=== PATIENT | female | born 1985 | race African-American/Black ===

== ENCOUNTER 2022-03-01 07:49 | Inpatient (IN) ==
[2022-03-01] MEDS ORDERED: ONDANSETRON 4 MG/2 ML VIAL IV PRN ×2 (08:19→20:42)
[2022-03-01] MEDS ORDERED: OXYTOCIN/LR 20 UNIT/1,000 ML BAG IV ONE ×3 (08:19→20:42)
[2022-03-01] MEDS ORDERED: CARBOPROST TROMETHAMINE 250 MCG/ML AMP IM PRN (08:19)
[2022-03-01] MEDS ORDERED: miSOPROStoL 200 MCG TABLET RECTAL PRN (08:19)
[2022-03-01] MEDS ORDERED: METHYLERGONOVINE 0.2 MG/1 ML AMP IM PRN (08:19)
[2022-03-01] MEDS ORDERED: TRANEXAMIC ACID 1,000 MG in SODIUM CHLORIDE 0.9% 100 ML IV PRN (08:19)
[2022-03-01] MEDS ORDERED: BUTORPHANOL 2 MG/ML VIAL IV PRN (08:19)
[2022-03-01] MEDS ORDERED: MEPERIDINE 25 MG/1 ML VIAL IM PRN (08:19)
[2022-03-01] MEDS ORDERED: diphenhydrAMINE 50 MG/1 ML VIAL IV PRN ×2 (08:24)
[2022-03-01] MEDS ORDERED: FAMOTIDINE 20 MG/2 ML VIAL IV ONE (08:24)
[2022-03-01] MEDS ORDERED: ePHEDrine 50 MG/ML VIAL IV PRN (08:24)
[2022-03-01] MEDS ORDERED: PROMETHAZINE 25 MG/1 ML VIAL IM ONE (08:24)
[2022-03-01] MEDS ORDERED: hydrOXYzine HCL 25 MG/1 ML VIAL IM PRN (08:24)
[2022-03-01] MEDS ORDERED: NALOXONE 0.4 MG/ML VIAL IV PRN (08:24)
[2022-03-01] MEDS ORDERED: CITRIC ACID/SODIUM CITRATE 30 ML UDCUP PO ONE (08:24)
[2022-03-01] MEDS ORDERED: OXYTOCIN/LR 20 UNIT/1,000 ML BAG IV SCH (08:30)
[2022-03-01 08:33] LABS: Bacteria,Urine Occasional /HPF (Few); Bilirubin,Urine Negative (Negative); Blood, Urine Large mg/dL (Negative); Glucose,Urine (UA) Negative (Negative); Ketones,Urine 5 mg/dL (Negative); Mucus,Urine Occasional /LPF (Occasional); Nitrite,Urine Negative (Negative); Protein,Urine Negative (Negative); RBC,Urine 4 /HPF (0-4); Squamous Epithelial Cell,Urine Few /HPF (0-10); Urine Appearance CLOUDY (Clear); Urine Color Yellow (Yellow); Urine Specific Gravity 1.017 (1.001-1.035); Urine Urobilinogen < 2.0 eU/dL (<2.0)
[2022-03-01 08:39] LABS: Basophils # 0.1 10*3/uL (0.0-0.2); Basophils % 0.5 % (0.0-0.8); Eosinophils # 0.3 10*3/uL (0.0-0.87); Eosinophils % 3.1 % (0.00-10.9); Hematocrit 33.4 VOL% (35.7-47.0); Hemoglobin 10.8 GM/DL (12.0-16.0); Immature Granulocytes % 2.5 %; Immature Granulocytes Absolute 0.25 #; Lymphocytes # 2.1 10*3/uL (1.4-4.0); Mean Corpuscular HGB Conc 32.3 GM/DL (32-36); Mean Corpuscular Volume 88.6 FL (87-102); Mean Platelet Volume 10.2 FL (9.6-12.0); Monocytes # 0.9 10*3/uL (0.11-0.8); Monocytes % 9.2 % (1.7-12.7); Neutrophils % 63.7 % (38.7-73.9); Platelet Count 131 T/CUMM (130-400); Red Blood Count 3.77 MC/CUMM (3.8-5.5); Red Cell Distribution Width 14.1 % (9.3-17.3); White Blood Count 9.9 T/CUMM (4-12)
[2022-03-01] MEDS: LACTATED RINGERS 1,000 ML IV SCH ×3 (08:52→12:59)
[2022-03-01] MEDS ORDERED: AMPICILLIN INJ 2,000 MG in SODIUM CHLORIDE 0.9% 100 ML IV ONE (09:45)
[2022-03-01] MEDS: fentaNYL 2 MCG/ROPIV 0.2% EPID 100 ML EPIDURAL SCH ×2 (09:49→16:28)
[2022-03-01 10:25] LABS: Bilirubin,Urine Negative (Negative); Blood, Urine Negative (Negative); Glucose,Urine (UA) Negative (Negative); Ketones,Urine 80 mg/dL (Negative); Mucus,Urine Occasional /LPF (Occasional); Nitrite,Urine Negative (Negative); Protein,Urine Negative (Negative); RBC,Urine 1 /HPF (0-4); Squamous Epithelial Cell,Urine Occasional /HPF (0-10); Urine Appearance CLEAR (Clear); Urine Color Yellow (Yellow); Urine Specific Gravity 1.021 (1.001-1.035); Urine Urobilinogen < 2.0 eU/dL (<2.0)
[2022-03-01] MEDS: AMPICILLIN INJ 1,000 MG in SODIUM CHLORIDE 0.9% 100 ML IV SCH ×2 (13:47→18:17)
[2022-03-01] MEDS ORDERED: TRANEXAMIC ACID 1,000 MG/10 ML VIAL ONE (15:30)
[2022-03-01] MEDS ORDERED: miSOPROStoL 200 MCG TABLET ONE (15:30)
[2022-03-01] MEDS ORDERED: SODIUM CHLORIDE 0.9% 0 ML IV ONE (15:30)
[2022-03-01] MEDS ORDERED: METHYLERGONOVINE 0.2 MG/1 ML AMP ONE (15:31)
[2022-03-01] MEDS ORDERED: CARBOPROST TROMETHAMINE 250 MCG/ML AMP IM ONE (15:31)
[2022-03-01] MEDS ORDERED: ceFAZolin 2,000 MG/50 ML DUPLEX IV ONE (18:53)
[2022-03-01] MEDS ORDERED: LIDOCAINE MPF 2% /EPI 20 ML VIAL ONE (19:06)
[2022-03-01] MEDS ORDERED: ONDANSETRON 4 MG/2 ML VIAL ONE (19:06)
[2022-03-01] MEDS ORDERED: PHENYLEPHRINE 1 MG/10 ML SYRINGE IV ONE ×2 (19:37→19:57)
[2022-03-01] MEDS ORDERED: buprenorphine HCL 0.3 MG/ML VIAL ONE (19:38)
[2022-03-01] MEDS ORDERED: ACETAMINOPHEN INJ 1,000 MG/100 ML VIAL IV ONE (19:38)
[2022-03-01] MEDS ORDERED: KETOROLAC 30 MG/1 ML VIAL ONE (19:38)
[2022-03-01] MEDS ORDERED: DEXAMETHASONE 4 MG/1 ML VIAL ONE (19:44)
[2022-03-01] MEDS ORDERED: ePHEDrine 50 MG/ML VIAL ONE (19:54)
[2022-03-01] MEDS ORDERED: CALCIUM CHLORIDE 1,000 MG/10 ML VIAL IV ONE (20:11)
[2022-03-01] MEDS ORDERED: METOCLOPRAMIDE 10 MG/2 ML VIAL ONE (20:26)
[2022-03-01] MEDS ORDERED: RHO(D) IMMUNE GLOBULIN 300 MCG SYRINGE IM ONE (20:42)
[2022-03-01] MEDS ORDERED: SIMETHICONE CHEW 80 MG TABLET PO PRN (20:42)
[2022-03-01] MEDS ORDERED: ACETAMINOPHEN 325 MG TABLET PO PRN (20:42)
[2022-03-01] MEDS ORDERED: LACTATED RINGERS 1,000 ML IV SCH (21:00)
[2022-03-02] MEDS: DOCUSATE SODIUM 100 MG CAPSULE PO SCH ×3 (02:38→20:30)
[2022-03-02] MEDS: oxyCODONE/ACETAMINOPHEN 5-325 MG TABLET PO PRN ×3 (04:52→20:31)
[2022-03-02 05:15] LABS: Basophils % 0.1 % (0.0-0.8); Hematocrit 25.7 VOL% (35.7-47.0); Hemoglobin 8.4 GM/DL (12.0-16.0); Immature Granulocytes Absolute 0.21 #; Lymphocytes # 0.9 10*3/uL (1.4-4.0); Lymphocytes % 4.6 % (21.3-54.2); Mean Corpuscular HGB Conc 32.7 GM/DL (32-36); Mean Corpuscular Volume 89.2 FL (87-102); Mean Platelet Volume 10.9 FL (9.6-12.0); Monocytes % 4.8 % (1.7-12.7); Neutrophils % 89.5 % (38.7-73.9); Platelet Count 121 T/CUMM (130-400); Red Blood Count 2.88 MC/CUMM (3.8-5.5); Red Cell Distribution Width 14.2 % (9.3-17.3); White Blood Count 20.1 T/CUMM (4-12)
[2022-03-02 05:39] LABS: Band Neutrophils 1 % (0-10); Hypochromia Slight; Lymphocytes 6 % (20-55); Microcytosis Slight; Total Cells Counted 100
[2022-03-02] MEDS: MULTIVITAMIN (PRENATAL) TABLET PO SCH (09:34)
[2022-03-02] MEDS: MAGNESIUM HYDROXIDE SUSP 30 ML UDCUP PO PRN ×2 (09:34→20:30)
[2022-03-03] MEDS: oxyCODONE/ACETAMINOPHEN 5-325 MG TABLET PO PRN ×3 (03:02→17:52)
[2022-03-03 05:21] LABS: Basophils # 0.1 10*3/uL (0.0-0.2); Basophils % 0.4 % (0.0-0.8); Eosinophils # 0.2 10*3/uL (0.0-0.87); Eosinophils % 1.7 % (0.00-10.9); Hemoglobin 7.6 GM/DL (12.0-16.0); Immature Granulocytes Absolute 0.12 #; Mean Corpuscular HGB Conc 31.7 GM/DL (32-36); Mean Corpuscular Volume 90.2 FL (87-102); Mean Platelet Volume 10.4 FL (9.6-12.0); Monocytes # 0.9 10*3/uL (0.11-0.8); Monocytes % 7.1 % (1.7-12.7); Neutrophils % 73.8 % (38.7-73.9); Platelet Count 125 T/CUMM (130-400); Red Blood Count 2.66 MC/CUMM (3.8-5.5); Red Cell Distribution Width 14.6 % (9.3-17.3); White Blood Count 12.2 T/CUMM (4-12)
[2022-03-03] MEDS: MAGNESIUM HYDROXIDE SUSP 30 ML UDCUP PO PRN (10:03)
[2022-03-03] MEDS: MULTIVITAMIN (PRENATAL) TABLET PO SCH (10:03)
[2022-03-03] MEDS: DOCUSATE SODIUM 100 MG CAPSULE PO SCH ×2 (10:03→21:06)
[2022-03-03] MEDS: FERROUS SULFATE 325 MG TABLET PO SCH (21:06)
[2022-03-04] MEDS: oxyCODONE/ACETAMINOPHEN 5-325 MG TABLET PO PRN ×3 (00:07→22:55)
[2022-03-04] MEDS: MULTIVITAMIN (PRENATAL) TABLET PO SCH (08:37)
[2022-03-04] MEDS: DOCUSATE SODIUM 100 MG CAPSULE PO SCH ×2 (08:37→20:37)
[2022-03-04] MEDS: FERROUS SULFATE 325 MG TABLET PO SCH ×2 (08:37→20:37)
[2022-03-04] MEDS ORDERED: ONDANSETRON 4 MG TABLET PO PRN (12:42)
[2022-03-04] MEDS ORDERED: IBUPROFEN 800 MG TABLET PO PRN (17:47)
[2022-03-05] MEDS: FERROUS SULFATE 325 MG TABLET PO SCH (09:14)
[2022-03-05] MEDS: DOCUSATE SODIUM 100 MG CAPSULE PO SCH (09:14)
[2022-03-05] MEDS: MULTIVITAMIN (PRENATAL) TABLET PO SCH (09:14)
[2022-03-05 09:18] VITALS: BP 131/78
[2022-03-05] MEDS ORDERED: INFLUENZA VIRUS VACCINE 0.5 ML SYRINGE IM ONE (10:58)
[2022-03-05] MEDS ORDERED: MEASLES/MUMPS/RUBELLA VACCINE 0.5 ML VIAL SUBCUT ONE (10:59)
[2022-03-05] MEDS ORDERED: DIPH/TET/ACEL PERT BOOSTER VACCINE 0.5 ML VIAL IM ONE (10:59)
== END 2022-03-05 12:25 | disposition home or self-care (01) | DRG 540 ==
LOC: N.LD 07:49 → N.OB 03-02 02:24
PROVIDERS: ADMIT Obstetrics & Gynecology; ATTEND Obstetrics & Gynecology
PROC: LDCSECT (ICD-10-PCS; 2022-03-01 19:00)